=== PATIENT | female | born 1970 | race African-American/Black ===

== ENCOUNTER 2016-07-31 16:52 | Emergency (ER) | payer OTHER | END 2016-07-31 18:20 | disposition home or self-care (01) | LOC: FER 16:52 | DX: M54.2 Cervicalgia (principal); G89.29 Other chronic pain; Z88.0 Allergy status to penicillin; Z88.6 Allergy status to analgesic agent; Z88.8 Allergy status to other drugs, medicaments and biological substances; Z87.39 Personal history of other diseases of the musculoskeletal system and connective tissue | CPT/HCPCS: 99283; J1885 ==

== ENCOUNTER 2016-11-04 11:19 | Emergency (ER) | payer OTHER | END 2016-11-04 12:48 | disposition home or self-care (01) | LOC: FER 11:19 | DX: I10 Essential (primary) hypertension (principal); F41.9 Anxiety disorder, unspecified; Z88.0 Allergy status to penicillin; Z88.6 Allergy status to analgesic agent | CPT/HCPCS: 99283 ==

== ENCOUNTER 2017-02-13 10:29 | Emergency (ER) | payer OTHER | END 2017-02-13 13:32 | disposition home or self-care (01) | LOC: FER 10:29 | DX: G43.909 Migraine, unspecified, not intractable, without status migrainosus (principal); I10 Essential (primary) hypertension; Z79.899 Other long term (current) drug therapy | CPT/HCPCS: 70450; J2765 ==

== ENCOUNTER 2020-06-05 16:47 | Emergency (ER) | payer OTHER ==
[~2020-06-05 16:47] MED LIST: ACETAMINOPHEN500 M1 PO; ATARAX25 MG PO; BENTYL10 MG PO; FLAGYL500 MG PO; FLEXERIL10 MG PO; GABAPENTIN100 MG PO; IBUPROFEN800 MG PO; KEFLEX250 MG PO; KLONOPIN0.5 MG PO; METRONIDAZOLE500 MG PO; MIRALAX17 GM PO; NORCO 5-325 TA1 EACH PO; NORCO 7.5-3251 EACH PO; PAXIL10 MG PO; PRINIVIL10 MG PO; SKELAXIN800 MG PO; TESSALON PERLE100 M1 PO; XANAX0.25 MG PO; ZITHROMAX250 MG PO; ZOFRAN4 MG PO
[2020-06-05 21:20] LABS: BASOPHIL 0.2 % (0-2); EOSINOPHIL 1.9 % (0-5); HCT 37.6 % (37.0-47.0); HGB 12.1 g/dl (12.5-16.0); LYMPHOCYTE 48.4 % (15-48); MCH 31.3 pg (25.0-31.0); MCHC 32.2 g/dL (32.0-36.0); MCV 97.4 fL (78.0-100.0); MONOCYTE 8.1 % (0-12); MPV 9.2 fL (6.0-9.5); NEUTROPHIL 41.2 % (41-80); NRBC 0; PLT 291 K/uL (150-400); RBC 3.86 M/uL (4.20-5.40); RDW 12.9 % (11.5-14.0); WBC 9.1 K/uL (4.0-10.5)
[2020-06-05 21:37] LABS: ALBUMIN 3.9 g/dL (3.4-5.0); BILIRUBIN - TOTAL 0.2 mg/dL (0.2-1.0); BUN/CREAT RATIO (CALC) 15.2 RATIO; CREATININE 0.92 mg/dL (0.51-0.95); GLOBULIN (CALCULATION) 4.9 g/dL; POTASSIUM 3.8 mmol/L (3.5-5.1); TOTAL PROTEIN 8.8 g/dL (6.4-8.2)
[2020-06-05] MEDS ORDERED: VENTOLIN HFA IN18 GM INH (22:24)
[2020-06-05] MEDS ORDERED: ZPAK PO (22:24)
[2020-06-05] MEDS ORDERED: PREDNISONE 20MG20 MG PO (22:24)
[2020-06-05 22:52] LABS: CORONAVIRUS 2019 SARS-COV-2 NEGATIVE (NEGATIVE); INFLUENZA A NAA NEGATIVE (NEGATIVE)
== END 2020-06-05 23:20 | disposition home or self-care (01) ==
LOC: FER 16:47
PROVIDERS: Nurse Practitioner Family
DX: B34.9 Viral infection, unspecified (principal); I10 Essential (primary) hypertension; Z88.0 Allergy status to penicillin; Z88.6 Allergy status to analgesic agent; Z79.899 Other long term (current) drug therapy; Z20.822 Contact with and (suspected) exposure to COVID-19
CPT/HCPCS: 36415; 71045; 80053; 83880; 85025; 85379; J1100; J2270; J2405; J7030; U0002

== ENCOUNTER 2020-07-18 15:35 | Emergency (ER) | payer OTHER ==
[~2020-07-18 15:35] MED LIST changes: +PREDNISONE 20MG20 MG PO; +VENTOLIN HFA IN18 GM INH; +ZPAK PO
[2020-07-18] MEDS ORDERED: NORCO 5-325 TA1 EACH PO (16:59)
[2020-07-18] MEDS ORDERED: CYCLOBENZAPRINE10 MG PO (16:59)
[2020-07-18] MEDS ORDERED: PREDNISONE 20MG20 MG PO ×2 (16:59→17:00)
== END 2020-07-18 18:02 | disposition home or self-care (01) ==
LOC: FER 15:35
DX: S39.012A Strain of muscle, fascia and tendon of lower back, initial encounter (principal); I10 Essential (primary) hypertension; Z88.6 Allergy status to analgesic agent; Z88.5 Allergy status to narcotic agent; Z79.899 Other long term (current) drug therapy; W19.XXXA Unspecified fall, initial encounter
CPT/HCPCS: 99283; J1100

== ENCOUNTER 2020-08-22 11:12 | Emergency (ER) | payer OTHER ==
[~2020-08-22 11:12] MED LIST changes: +CYCLOBENZAPRINE10 MG PO
== END 2020-08-22 13:27 | disposition home or self-care (01) ==
LOC: FER 11:12
DX: J06.9 Acute upper respiratory infection, unspecified (principal); I10 Essential (primary) hypertension; Z88.0 Allergy status to penicillin; Z88.6 Allergy status to analgesic agent; Z88.1 Allergy status to other antibiotic agents; Z79.899 Other long term (current) drug therapy
CPT/HCPCS: 87880; 99283

== ENCOUNTER 2020-11-20 14:01 | Emergency (ER) | payer OTHER ==
[2020-11-20] MEDS ORDERED: ROBAXIN750 MG PO (16:12)
[2020-11-20] MEDS ORDERED: PREDNISONE 20MG20 MG PO (16:12)
== END 2020-11-20 16:23 | disposition home or self-care (01) ==
LOC: FER 14:01
DX: M54.41 Lumbago with sciatica, right side (principal); I10 Essential (primary) hypertension; E66.9 Obesity, unspecified; Z88.6 Allergy status to analgesic agent; Z88.5 Allergy status to narcotic agent; Z88.0 Allergy status to penicillin; Z79.899 Other long term (current) drug therapy
CPT/HCPCS: 99283

== ENCOUNTER 2021-09-04 14:53 | Emergency (ER) | payer OTHER ==
[~2021-09-04 14:53] MED LIST changes: +ROBAXIN750 MG PO
[2021-09-04 16:43] LABS: BASOPHIL 0.2 % (0-2); HCT 36.7 % (37.0-47.0); HGB 12.1 g/dl (12.5-16.0); LYMPHOCYTE 28.5 % (15-48); MCH 31.8 pg (25.0-31.0); MCV 96.3 fL (78.0-100.0); MPV 8.9 fL (6.0-9.5); NRBC 0; PLT 255 K/uL (150-400); RBC 3.81 M/uL (4.20-5.40); RDW 12.6 % (11.5-14.0)
[2021-09-04 16:59] LABS: ALBUMIN 3.9 g/dL (3.4-5.0); BILIRUBIN - TOTAL 0.3 mg/dL (0.2-1.0); BUN/CREAT RATIO (CALC) 13.8 RATIO; CREATININE 0.94 mg/dL (0.51-0.95); GLOBULIN (CALCULATION) 4.8 g/dL; POTASSIUM 3.5 mmol/L (3.5-5.1); TOTAL PROTEIN 8.7 g/dL (6.4-8.2)
[2021-09-04 17:04] LABS: BILIRUBIN NEGATIVE (NEGATIVE); BLOOD 1+ Ery/uL (NEGATIVE); CLARITY CLEAR (CLEAR); COLOR YELLOW (YELLOW); GLUCOSE (U) NORMAL (NORMAL); LEUKOCYTES 1+ Leu/uL (NEGATIVE); NITRITE POSITIVE (NEGATIVE); PROTEIN NEGATIVE (NEGATIVE); UROBILINOGEN 0.2 mg/dL (0.2-1.0)
[2021-09-04 17:12] LABS: BACTERIA 4+; URINARY WBC 20-50
[2021-09-04 17:13] LABS: SQUAMOUS EPITHELIAL CELLS RARE
== END 2021-09-04 17:33 | disposition left against medical advice (07) ==
LOC: FER 14:53
PROVIDERS: Physician Assistant
DX: F41.9 Anxiety disorder, unspecified (principal); R11.10 Vomiting, unspecified; I10 Essential (primary) hypertension; Z88.5 Allergy status to narcotic agent; Z88.0 Allergy status to penicillin; Z79.899 Other long term (current) drug therapy; Z53.8 Procedure and treatment not carried out for other reasons; Z28.311 Partially vaccinated for COVID-19
CPT/HCPCS: 36415; 80053; 81001; 83690; 85025; 87076; 87088; 87186; J2060

== ENCOUNTER 2022-01-13 13:02 | Emergency (ER) | payer OTHER ==
[~2022-01-13] VITALS: Ht 162.6 cm; Wt 62.1 kg
[2022-01-13 14:02] LABS: BASOPHIL 0.4 % (0-2); EOSINOPHIL 3.2 % (0-5); HGB 11.4 g/dl (12.5-16.0); LYMPHOCYTE 46.7 % (15-48); MCH 33.1 pg (25.0-31.0); MCHC 33.5 g/dL (32.0-36.0); MCV 98.8 fL (78.0-100.0); MONOCYTE 6.6 % (0-12); MPV 9.5 fL (6.0-9.5); NEUTROPHIL 42.8 % (41-80); NRBC 0; PLT 249 K/uL (150-400); RBC 3.44 M/uL (4.20-5.40); RDW 12.5 % (11.5-14.0); WBC 7.3 K/uL (4.0-10.5)
[2022-01-13 14:02] LABS: BILIRUBIN NEGATIVE (NEGATIVE); BLOOD TRACE-INTACT Ery/uL (NEGATIVE); CLARITY CLEAR (CLEAR); COLOR YELLOW (YELLOW); GLUCOSE (U) NORMAL (NORMAL); LEUKOCYTES 1+ Leu/uL (NEGATIVE); NITRITE NEGATIVE (NEGATIVE); PROTEIN NEGATIVE (NEGATIVE); SPECIFIC GRAVITY <=1.005 (1.001-1.030); UROBILINOGEN 0.2 mg/dL (0.2-1.0)
[2022-01-13 14:15] LABS: BACTERIA TRACE
[2022-01-13 14:18] LABS: ALBUMIN 3.6 g/dL (3.4-5.0); BILIRUBIN - TOTAL 0.4 mg/dL (0.2-1.0); BUN/CREAT RATIO (CALC) 14.3 RATIO; CREATININE 0.77 mg/dL (0.51-0.95); GLOBULIN (CALCULATION) 4.2 g/dL; POTASSIUM 4.3 mmol/L (3.5-5.1); TOTAL PROTEIN 7.8 g/dL (6.4-8.2)
[2022-01-13] MEDS ORDERED: BENTYL10 MG PO (16:38)
== END 2022-01-13 17:01 | disposition home or self-care (01) ==
LOC: FER 13:02
PROVIDERS: Nurse Practitioner Family
DX: R10.84 Generalized abdominal pain (principal); R19.7 Diarrhea, unspecified; I10 Essential (primary) hypertension; Z88.0 Allergy status to penicillin; Z88.5 Allergy status to narcotic agent; Z88.6 Allergy status to analgesic agent; Z88.8 Allergy status to other drugs, medicaments and biological substances; Z79.899 Other long term (current) drug therapy
CPT/HCPCS: 36415; 80053; 81001; 82150; 83690; 85025; 87088; J2270; J2405; J7030; Q9967

== ENCOUNTER 2022-02-10 12:23 | Emergency (ER) | payer OTHER ==
[2022-02-10 13:38] LABS: ALBUMIN 3.5 g/dL (3.4-5.0); BILIRUBIN - TOTAL 0.4 mg/dL (0.2-1.0); BUN/CREAT RATIO (CALC) 18.5 RATIO; CREATININE 0.81 mg/dL (0.51-0.95); GLOBULIN (CALCULATION) 4.4 g/dL; POTASSIUM 3.7 mmol/L (3.5-5.1); TOTAL PROTEIN 7.9 g/dL (6.4-8.2)
[2022-02-10 14:13] LABS: BASOPHIL 0.4 % (0-2); EOSINOPHIL 2.2 % (0-5); HCT 33.1 % (37.0-47.0); MCH 32.9 pg (25.0-31.0); MCHC 33.2 g/dL (32.0-36.0); MCV 99.1 fL (78.0-100.0); MONOCYTE 6.9 % (0-12); MPV 9.2 fL (6.0-9.5); NEUTROPHIL 46.2 % (41-80); NRBC 0; PLT 248 K/uL (150-400); RBC 3.34 M/uL (4.20-5.40); RDW 12.6 % (11.5-14.0); WBC 7.6 K/uL (4.0-10.5)
[2022-02-10] MEDS ORDERED: PRILOSEC20 MG PO (15:36)
[2022-02-10] MEDS ORDERED: BENTYL10 MG PO (15:36)
== END 2022-02-10 16:12 | disposition home or self-care (01) ==
LOC: FER 12:23
PROVIDERS: Nurse Practitioner Family
DX: K21.9 Gastro-esophageal reflux disease without esophagitis (principal); R19.7 Diarrhea, unspecified; Z28.311 Partially vaccinated for COVID-19
CPT/HCPCS: 36415; 80053; 82150; 83690; 85025; J2765; J7030